=== PATIENT | male | born 1960 | race Caucasian/White ===

== ENCOUNTER 2021-02-12 01:00 | Observation (INO) | payer SELFPAY ==
[2021-02-12 02:47] VITALS: BMI 27.2
[2021-02-12] MEDS ORDERED: Acetaminophen 325 MG TAB PO PRN (03:28)
[2021-02-12] MEDS ORDERED: HumaLOG 300 UNITS/3 ML VIAL SC PRN ×2 (03:49)
[2021-02-12] MEDS ORDERED: Dextrose 50% Abboject 50 ML SYRINGE SLOW IVP PRN (03:49)
[2021-02-12] MEDS ORDERED: Dextrose 5% in Water 1,000 ML IV PRN (03:49)
[2021-02-12 06:36] LABS: Cardiac Risk 3.3 (Less than 4.5)
[2021-02-12] MEDS: oxyCODONE 5 MG TAB PO SCH ×2 (07:05→14:38)
[2021-02-12] MEDS ORDERED: Metoclopramide HCl 10 MG TAB PO SCH (09:00)
[2021-02-12] MEDS ORDERED: Enoxaparin Sodium 40 MG/0.4 ML SYRINGE SC SCH (09:00)
[2021-02-12] MEDS ORDERED: Venlafaxine HCl XR 75 MG CAP PO SCH (09:00)
[2021-02-12] MEDS ORDERED: Gabapentin 300 MG CAP PO SCH (09:00)
[2021-02-12] MEDS ORDERED: Lisinopril 20 MG TAB PO SCH (09:00)
[2021-02-12] MEDS ORDERED: ADENOSINE 60 MG/20 ML VIAL ONE (11:38)
[2021-02-12 16:13] VITALS: TEMP 98.1
[2021-02-12] MEDS ORDERED: Carvedilol 25 MG TAB PO SCH (17:15)
[2021-02-12 17:54] VITALS: BP 164/90
[2021-02-12] MEDS ORDERED: rOPINIRole HCl 2 MG TAB PO SCH (21:00)
[2021-02-12] MEDS ORDERED: Atorvastatin Calcium 40 MG TAB PO SCH (21:00)
== END 2021-02-12 18:27 | disposition home or self-care (01) ==
LOC: 2SW 02:19 → EDBD 02:19
PROVIDERS: ADMIT Family Medicine; ATTEND Family Medicine
DX: R07.9 Chest pain, unspecified (principal); I25.2 Old myocardial infarction; I11.0 Hypertensive heart disease with heart failure; I50.9 Heart failure, unspecified; I25.10 Atherosclerotic heart disease of native coronary artery without angina pectoris; G47.33 Obstructive sleep apnea (adult) (pediatric); E78.5 Hyperlipidemia, unspecified; Z95.5 Presence of coronary angioplasty implant and graft; E11.9 Type 2 diabetes mellitus without complications; K22.70 Barrett's esophagus without dysplasia; G89.29 Other chronic pain; G25.81 Restless legs syndrome; K21.9 Gastro-esophageal reflux disease without esophagitis; Z79.82 Long term (current) use of aspirin; Z79.84 Long term (current) use of oral hypoglycemic drugs; Z79.891 Long term (current) use of opiate analgesic; Z79.899 Other long term (current) drug therapy
CPT/HCPCS: 36415; 36416; 78452; 80061; 84484; 93017; 96372; A9500; G0378; J0153; J1650

== ENCOUNTER 2021-11-21 20:46 | Observation (INO) | payer OTHER ==
[2021-11-21] MEDS ORDERED: Aspirin 325 MG TAB ONE (21:59)
[2021-11-21] MEDS ORDERED: Nitroglycerin 2% Ointment 1 INCH/1 GM Packet ONE (21:59)
[2021-11-21 22:34] LABS: #Basophils 0.1 thou/uL (0.0-0.2); #Eosinphils 0.3 thou/uL (0.0-0.7); #Lymphocytes 2.5 thou/uL (1.20-3.40); #Monocytes 0.8 thou/uL (0.11-0.59); %Basophils 0.7 % (0.0-1.0); %Eosinophils 2.3 % (0.0-10.0); %Lymphocytes 19.8 % (21.0-51.0); %Monocytes 6.1 % (0.0-10.0); %Neutrophils 71.2 % (42.0-75.0); Mean Corpuscular Hemoglobin 27.8 pg (27.0-31.0); Mean Corpuscular Volume 86.7 fL (78.0-98.0); Mean Platelet Volume 7.6 fL (7.4-10.4); Platelet Count 397 thou/uL (130-400); RBC Distribution Width 16.5 % (11.5-14.5); Red Blood Cell (RBC) Count 4.34 mill/uL (4.70-6.10); White Blood Cell (WBC) Count 12.7 thou/uL (4.8-10.8)
[2021-11-21] MEDS ORDERED: Morphine 4 MG/ML VIAL ONE (22:49)
[2021-11-21 22:50] LABS: ALT (SGPT) 13 U/L (8-55); AST (SGOT) 16 U/L (5-34); Alkaline Phosphatase 72 U/L (40-110); Anion Gap 12 mmol/L (10-20); BUN (Urea Nitrogen) 17 mg/dL (8.4-25.7); Bilirubin, Total 0.2 mg/dL (0.2-1.2); Calc. Creatinine Clearance 0 mL/min (70-130); Carbon Dioxide 27 mmol/L (22-29); Chloride 106 mmol/L (98-107); Estimated GFR 103; Globulin 3.1 g/dL (2.4-3.5); Glucose 69 mg/dL (70-105); Lipase 43 U/L (8-78); Potassium 4.1 mmol/L (3.5-5.1); Protein, Total 7.1 g/dL (6.0-8.3); Sodium 141 mmol/L (136-145)
[2021-11-21] MEDS ORDERED: Ondansetron PF 4 MG/2 ML Vial ONE (23:13)
[2021-11-21] MEDS ORDERED: HumaLOG 300 UNITS/3 ML VIAL SC PRN ×2 (23:40)
[2021-11-21] MEDS ORDERED: Dextrose 5% in Water 1,000 ML IV PRN (23:40)
[2021-11-21] MEDS ORDERED: Acetaminophen 325 MG TAB PO PRN (23:40)
[2021-11-21] MEDS ORDERED: Dextrose 50% Abboject 50 ML SYRINGE SLOW IVP PRN (23:40)
[2021-11-22] MEDS ORDERED: Lactated Ringer's 1,000 ML IV SCH (00:15)
[2021-11-22] MEDS ORDERED: OXYCODONE HCL 15 MG PO SCH (00:30)
[2021-11-22 00:54] LABS: SARS-CoV-2 NAA Rapid Test Not Detected (NotDetected)
[2021-11-22] MEDS: oxyCODONE 5 MG TAB PO PRN ×3 (01:34→15:09)
[2021-11-22 01:44] LABS: Troponin I Less than 0.010 ng/mL (< 0.028)
[2021-11-22] MEDS ORDERED: rOPINIRole HCl 1 MG TAB PO SCH ×2 (03:30→21:00)
[2021-11-22] MEDS ORDERED: Gabapentin 300 MG CAP PO SCH ×2 (03:30→09:00)
[2021-11-22 04:41] LABS: #Basophils 0.1 thou/uL (0.0-0.2); #Eosinphils 0.3 thou/uL (0.0-0.7); #Lymphocytes 2.9 thou/uL (1.20-3.40); #Monocytes 0.7 thou/uL (0.11-0.59); #Neutrophils 6.7 thou/uL (1.40-6.50); %Basophils 0.5 % (0.0-1.0); %Eosinophils 3.2 % (0.0-10.0); %Monocytes 6.7 % (0.0-10.0); %Neutrophils 62.7 % (42.0-75.0); Hemoglobin 10.9 g/dL (14.0-18.0); Mean Corpuscular HGB CONC 32.1 g/dL (32.0-36.0); Mean Corpuscular Hemoglobin 28.4 pg (27.0-31.0); Mean Corpuscular Volume 88.5 fL (78.0-98.0); Mean Platelet Volume 7.5 fL (7.4-10.4); Platelet Count 340 thou/uL (130-400); RBC Distribution Width 16.2 % (11.5-14.5); Red Blood Cell (RBC) Count 3.82 mill/uL (4.70-6.10); White Blood Cell (WBC) Count 10.7 thou/uL (4.8-10.8)
[2021-11-22 05:02] LABS: Anion Gap 12 mmol/L (10-20); BUN (Urea Nitrogen) 18 mg/dL (8.4-25.7); Calc. Creatinine Clearance 0 mL/min (70-130); Calcium 8.6 mg/dL (7.8-10.44); Carbon Dioxide 27 mmol/L (22-29); Chloride 106 mmol/L (98-107); Estimated GFR 107; Glucose 98 mg/dL (70-105); Potassium 3.8 mmol/L (3.5-5.1); Sodium 141 mmol/L (136-145)
[2021-11-22 05:07] LABS: Troponin I Less than 0.010 ng/mL (< 0.028)
[2021-11-22 06:29] VITALS: BMI 25.0
[2021-11-22] MEDS ORDERED: metFORMIN 500 MG TAB PO SCH (08:00)
[2021-11-22] MEDS ORDERED: Venlafaxine HCl XR 150 MG CAP PO SCH (09:00)
[2021-11-22] MEDS ORDERED: Lisinopril 5 MG TAB PO SCH (09:00)
[2021-11-22] MEDS ORDERED: Enoxaparin Sodium 40 MG/0.4 ML SYRINGE SC SCH (09:00)
[2021-11-22] MEDS ORDERED: Carvedilol 3.125 MG TAB PO SCH (09:00)
[2021-11-22 16:30] VITALS: BP 168/98; TEMP 98.3
[2021-11-22] MEDS ORDERED: Atorvastatin Calcium 40 MG TAB PO SCH (21:00)
== END 2021-11-22 16:20 | disposition home or self-care (01) ==
LOC: ERS 20:46 → 2SW 22:56
PROVIDERS: ADMIT Student in an Organized Health Care Education/Training Program; ATTEND Student in an Organized Health Care Education/Training Program
DX: R07.2 Precordial pain (principal); R94.31 Abnormal electrocardiogram [ECG] [EKG]; D72.829 Elevated white blood cell count, unspecified; E11.9 Type 2 diabetes mellitus without complications; I11.0 Hypertensive heart disease with heart failure; I50.20 Unspecified systolic (congestive) heart failure; E78.5 Hyperlipidemia, unspecified; I25.10 Atherosclerotic heart disease of native coronary artery without angina pectoris; K22.70 Barrett's esophagus without dysplasia; D64.9 Anemia, unspecified; G89.4 Chronic pain syndrome; K21.9 Gastro-esophageal reflux disease without esophagitis; R63.4 Abnormal weight loss; Z68.25 Body mass index [BMI] 25.0-25.9, adult; Z79.84 Long term (current) use of oral hypoglycemic drugs; Z79.899 Other long term (current) drug therapy; Z95.1 Presence of aortocoronary bypass graft; Z20.822 Contact with and (suspected) exposure to COVID-19
CPT/HCPCS: 71045; 80048; 80053; 82962; 83690; 84484 ×3; 85025 ×2; 87804 ×2; 93005; 96374; 96375; 99285; U0002; 36415; 36416; J1650; J2270; J2405; J7120

== ENCOUNTER 2021-12-02 08:18 | Outpatient (CLI) | payer OTHER ==
[2021-12-02] MEDS ORDERED: Iopamidol-370 76% 500 ML 1 ML ONE (15:05)
== END 2021-12-02 08:19 | disposition home or self-care (01) ==
LOC: BICCT 08:18
PROVIDERS: ATTEND Physician Assistant Medical
DX: K22.70 Barrett's esophagus without dysplasia (principal); R11.2 Nausea with vomiting, unspecified; D64.9 Anemia, unspecified
CPT/HCPCS: 74177; Q9967

== ENCOUNTER 2021-12-27 09:09 | Outpatient (CLI) | payer OTHER | END 2021-12-27 09:10 | disposition home or self-care (01) | LOC: SCSMRI 09:09 | PROVIDERS: ATTEND Physical Medicine & Rehabilitation | DX: M96.1 Postlaminectomy syndrome, not elsewhere classified (principal); M48.061 Spinal stenosis, lumbar region without neurogenic claudication; M47.816 Spondylosis without myelopathy or radiculopathy, lumbar region; M51.36 Other intervertebral disc degeneration, lumbar region; M48.02 Spinal stenosis, cervical region; M48.07 Spinal stenosis, lumbosacral region; M48.04 Spinal stenosis, thoracic region; M47.814 Spondylosis without myelopathy or radiculopathy, thoracic region; M51.34 Other intervertebral disc degeneration, thoracic region; M47.815 Spondylosis without myelopathy or radiculopathy, thoracolumbar region; M50.11 Cervical disc disorder with radiculopathy, high cervical region; M47.22 Other spondylosis with radiculopathy, cervical region; M43.12 Spondylolisthesis, cervical region; M25.78 Osteophyte, vertebrae; M48.03 Spinal stenosis, cervicothoracic region | CPT/HCPCS: 72141; 72148 ==